=== PATIENT | female | born 1985 | race Caucasian/White ===

== ENCOUNTER 2017-04-01 09:00 | Emergency (ER) | payer SELFPAY ==
--- NOTE | ~2017-04-01 | ER ---
PATIENT'S NAME: ZHANNA MCNEIL [facility] AGE: 31 Y [address] ROOM: [place] [address] LOCATION: [facility] ADMIT DATE: 04/01/2017 ER/Outpatient Report DISCHARGE DATE: 04/01/2017 FAMILY PHYSICIAN: PHYSICIAN, NO ATTENDING PHYSICIAN: Davis Hsu CHIEF COMPLAINT: Back pain. HISTORY OF PRESENT ILLNESS: Ms. Mcneil presents for evaluation of back pain. The pain started yesterday. It started acutely when she bent over to pickle sorter a shoe. She felt a pop like sensation on the left side. She denies pain running down her legs or around. The pain is stabbing in nature. It is intermittent and exacerbated by movement. She has not really done much to try to make it better. She denies any other symptoms associated with this including sensory changes or weakness or bowel or bladder changes. No fevers. PAST MEDICAL HISTORY: Documented on the record and reviewed by me. SOCIAL HISTORY: Documented on the record and reviewed by me. MEDICATIONS: Documented on the record and reviewed by me. ALLERGIES: DOCUMENTED ON THE RECORD AND REVIEWED BY ME. REVIEW OF SYSTEMS: All systems reviewed and negative except as noted in the HPI. PHYSICAL EXAMINATION: VITAL SIGNS: Blood pressure is 135/84, pulse 77, respiratory rate 18, temperature 97.3, SpO2 is 100% on room air. Pain is rated at 8/10. GENERAL: Age-appropriate female, upright on exam table in obvious discomfort. No respiratory distress. NEUROLOGIC: Awake and alert. GCS 15. No focal deficits. No asymmetry. Ambulation as expected. HEENT: Grossly unremarkable. CHEST: Even and unlabored respirations. HEART: Regular rate. ABDOMEN: Appears benign. BACK: Nontender along the spine. There is no CVA tenderness. The left PATIENT'S NAME: ZHANNA MCNEIL [facility] AGE: 31 Y [address] ROOM: [place] [address] LOCATION: [facility] ADMIT DATE: 04/01/2017 ER/Outpatient Report DISCHARGE DATE: 04/01/2017 FAMILY PHYSICIAN: PHYSICIAN, NO ATTENDING PHYSICIAN: Davis Hsu paraspinal region, the upper lumbar spine is tender to palpation. No erythema. No swelling. No edema. No fluctuance. No warmth. The SI joints are nontender. SKIN: Grossly intact. LABORATORY DATA AND X-RAYS: None. IMPRESSION: Back spasm. EMERGENCY DEPARTMENT COURSE: The patient was seen and evaluated as above. She will be treated with Flexeril as needed. Scheduled anti-inflammatories with Tylenol and ibuprofen. Activity as tolerated. Encourage as much activity as possible. The patient is to return to ER if there is any weakness or sensory changes or bowel or bladder dysfunction. All questions were answered. The patient was discharged. MD LIZA KELLY/awilda /[id number] d: 04/01/17 1648 t: 04/07/17 0639, OUTPATIENT REPORT
== END 2017-04-01 09:23 | disposition disaster alternative care site (69) ==
LOC: GACC 09:00
DX: M62.830 Muscle spasm of back (principal); E11.9 Type 2 diabetes mellitus without complications; Z88.2 Allergy status to sulfonamides